=== PATIENT | female | born 1950 | race Caucasian/White ===

== ENCOUNTER → 2021-10-05 | Outpatient (CLI) | payer MEDICARE, OTHER ==
--- NOTE | 2021-10-05 15:34 | RAD ---
EXAM: XR CHEST 2V, XR RIBS 2 VIEWS LT 10/05/2021 10:17 AM CLINICAL INDICATION: Fell onto arm a chair, left-sided rib pain. COMPARISON: None TECHNIQUE: PA and lateral views of the chest. AP and oblique views of the left ribs. FINDINGS: The heart is normal in size. Lungs are well-expanded and clear. No consolidation, pleural effusion, or pneumothorax. There are surgical clips in the right upper quadrant. There is an acute mi nimally displaced fracture of the left anterior 10th rib. IMPRESSION: 1. Acute minimally displaced left anterior 10th rib fracture. 2. No pneumothorax or other acute cardiopulmonary abnormality. Electronically signed by: Elma Gloria MD (10/05/2021 3:32 PM) [id number]
== END ==
LOC: RAD 09:58
PROVIDERS: ATTEND Family Medicine
DX: S22.32XA Fracture of one rib, left side, initial encounter for closed fracture (principal); R10.9 Unspecified abdominal pain; W19.XXXA Unspecified fall, initial encounter; Y93.89 Activity, other specified; Y92.89 Other specified places as the place of occurrence of the external cause; Y99.8 Other external cause status
CPT/HCPCS: 71046; 71100